=== PATIENT | female | born 1995 | race Two or more races ===

== ENCOUNTER 2021-07-03 08:00 | Day surgery (SDC) | payer OTHER ==
[~2021-07-03] VITALS: Ht 160 cm; Wt 66.7 kg
== END 2021-07-03 09:30 | disposition home or self-care (01) ==
LOC: CIR.AMB 08:00 → ER 08:37 → CIR.AMB 09:30 → SEC-K 11:26 → ER 11:26 → EDSTATUS 12:00 → O/R 17:40 → SEC-K 17:40 → O/R 19:00
PROVIDERS: ATTEND Specialist
DX: O03.4 Incomplete spontaneous abortion without complication (principal)

== ENCOUNTER 2022-12-24 09:35 | Inpatient (IN) | payer OTHER ==
[~2022-12-24] VITALS: Ht 160 cm; Wt 85.7 kg
[2022-12-24] MEDS ORDERED: PRENATAL CAPLE1 EAC1 PO (10:33)
[2022-12-24] MEDS ORDERED: INTEGRA PLUS C1 EACH PO (10:34)
== END 2022-12-26 18:11 | disposition home or self-care (01) | DRG 807 ==
LOC: OB/GYN 09:35 → LDR 09:35 → OB/GYN 19:23
PROVIDERS: ADMIT Specialist; ATTEND Specialist
PROC: 10E0XZZ Delivery of Products of Conception, External Approach (ICD-10-PCS; principal; 2022-12-24)
PROC: 0KQM0ZZ Repair Perineum Muscle, Open Approach (ICD-10-PCS; 2022-12-24)
PROC: 4A1HXCZ Monitoring of Products of Conception, Cardiac Rate, External Approach (ICD-10-PCS; 2022-12-24)
DX: O70.1 Second degree perineal laceration during delivery (principal); Z37.0 Single live birth; Z3A.39 39 weeks gestation of pregnancy; Z20.822 Contact with and (suspected) exposure to COVID-19